=== PATIENT | female | born 1960 | race American Indian/Alaskan Native ===

== ENCOUNTER 2020-04-30 12:10 | Emergency (ER) | payer MEDICAID ==
[~2020-04-30] VITALS: Ht 160 cm; Wt 65.0 kg
[~2020-04-30 12:10] MED LIST: HYDR-3965 PO
--- NOTE | 2020-04-30 14:43 | NUR ---
SHANTA IS AWAITING PATIENTS DISCHARGE IN [phone]
[2020-04-30] MEDS ORDERED: ESTR50GE TOP (14:47)
[2020-04-30 14:59] VITALS: BP 130/73
[2020-04-30 15:15] LABS: CLARITY,URINE CLEAR (Clear); COLOR,URINE YELLOW (Yellow); GLUCOSE, URINE NEGATIVE (Neg); KETONES,URINE NEGATIVE (Neg); LEUKOCYTE ESTERASE ,URINE NEGATIVE (Neg); NITRITES, URINE NEGATIVE (Neg); OCCULT BLOOD,URINE MODERATE (Neg); PROTEIN,URINE NEGATIVE (Neg); UROBILINOGEN,URINE 0.2 E.U/dL (0.2-1.0)
[2020-04-30 15:16] LABS: UA COLLECTION TYPE FOLEY CATH
[2020-04-30 15:28] LABS: WBC,URINE 0-4 /HPF (0-4)
[2020-04-30 15:29] LABS: BACTERIA,URINE NONE SEEN /HPF (Neg); MUCUS STRANDS NONE SEEN /LPF (Neg); RBC,URINE 20-50 /HPF (0-2); SQUAMOUS EPITHELIAL CELL,UR FEW /LPF (FEW)
== END 2020-04-30 15:01 | disposition home or self-care (01) ==
LOC: ER 12:11
DX: R33.9 Retention of urine, unspecified (principal); I10 Essential (primary) hypertension; F12.90 Cannabis use, unspecified, uncomplicated; Z79.899 Other long term (current) drug therapy
CPT/HCPCS: 51702; 81001; 99284